=== PATIENT | male | born 1965 | race Caucasian/White ===

== ENCOUNTER 2016-12-30 15:45 | Emergency (ER) | payer BC ==
--- NOTE | 2016-12-30 17:04 | UC ---
Knee Pain HPI - HPI Summary HPI Summary: 51 YEAR OLD MALE PRESENTS WITH SPONTANEOUS RIGHT KNEE ERYTHEMA AND SWELLING. - History of Current Complaint Stated Complaint: KNEE PAIN Time Seen by Provider: 12/30/16 17:02 - Allergies/Home Medications Allergies/Adverse Reactions: Allergies Allergy/AdvReac Type Severity Reaction Status Date / Time No Known Allergies Allergy Verified 12/30/16 17:09 PMH/Surg Hx/FS Hx/Imm Hx Previously Healthy: Yes - Surgical History Surgical History: Yes Surgery Procedure, Year, and Place: RIGHT ELBOW TRACTION - Social History Alcohol Use: Daily Substance Use Type: None Have You Smoked in the Last Year: No Review of Systems Constitutional: Negative Skin: Negative Eyes: Negative ENT: Negative Respiratory: Negative Cardiovascular: Negative Gastrointestinal: Negative Genitourinary: Negative Motor: Negative Neurovascular: Negative Musculoskeletal: Other: - RIGHT KNEE SWELLING/ERYTHEMA Neurological: Negative Psychological: Negative All Other Systems Reviewed And Are Negative: Yes Physical Exam Triage Information Reviewed: Yes Eye Exam: Normal ENT Exam: Normal Dental Exam: Normal Neck exam: Normal Neck: Positive: 1 Respiratory Exam: Normal Cardiovascular Exam: Normal Abdominal Exam: Normal Musculoskeletal: Positive: Other: - RIGHT KNEE SWELLING RIGHT KNEE ERYTHEMA Neurological Exam: Normal Psychological Exam: Normal Skin Exam: Normal Knee Pain Course/Dx - Differential Dx/Diagnosis Provider Diagnoses: RIGHT KNEEE SWELLING. RIGHT KNEE ERYTHEMA Discharge - Discharge Plan Condition: Stable Disposition: HOME Prescriptions: Methylprednisolone [Medrol Dosepak 4 MG*] 4 mg PO .SEE [facility]IN[facility] INSTRUCTION #21 tab Patient Education Materials: Knee Sprain (ED) Referrals: Lex Bronson MD [Medical Doctor] - Niko Bowman MD [Primary Care Provider] -
[2016-12-30 17:08] VITALS: BP 159/99
--- NOTE | 2016-12-30 17:37 | RAD ---
INDICATION: Atraumatic right knee pain COMPARISON: None TECHNIQUE: AP, lateral, tunnel, and sunrise views were obtained. FINDINGS: There are no acute osseous findings. The joint spaces are preserved. There is a small joint effusion. IMPRESSION: SMALL JOINT EFFUSION.
== END 2016-12-30 17:44 | disposition home or self-care (01) ==
LOC: UCEAST 15:45
DX: M25.461 Effusion, right knee (principal); L53.9 Erythematous condition, unspecified
CPT/HCPCS: 99212; G0463